=== PATIENT | female | born 1945 | race Caucasian/White ===

== ENCOUNTER 2022-03-26 14:34 | Outpatient (CLI) | payer MEDICARE | END 2022-03-26 14:35 | disposition home or self-care (01) | LOC: SCSMRI 14:34 | PROVIDERS: ATTEND Family Medicine | DX: M51.16 Intervertebral disc disorders with radiculopathy, lumbar region (principal); M47.26 Other spondylosis with radiculopathy, lumbar region; G95.19 Other vascular myelopathies; M51.25 Other intervertebral disc displacement, thoracolumbar region; M51.37 Other intervertebral disc degeneration, lumbosacral region | CPT/HCPCS: 72148 ==